=== PATIENT | female | born 1950 | race Caucasian/White ===

== ENCOUNTER 2021-05-16 16:16 | Observation (INO) ==
[2021-05-16 16:56] LABS: Basophils % 0.6 %; Eosinophils # 0.1 K/mcL (0.0-0.6); Hemoglobin 14.5 g/dL (11.5-15.4); Immature Granulocytes % 0.2 % (0-4); Lymphocytes # 1.5 K/mcL (0.6-4.6); Lymphocytes % 24.8 %; Mean Corpuscular Hemoglobin 30.9 pg (28.0-33.3); Mean Corpuscular Volume 93.8 fL (83.0-100.0); Monocytes # 0.6 K/mcL (0.0-1.3); Monocytes % 9.4 %; Platelet Count 266 K/mcL (140-400); Red Blood Count 4.69 M/mcL (3.82-4.97); Red Cell Distribution Width 13.1 % (11.5-14.5); White Blood Count 6.2 K/mcL (4.3-11.1)
[2021-05-16 17:07] LABS: Prothrombin Time 10.6 Seconds (9.4-12.1)
[2021-05-16 17:10] LABS: Activated Partial Thrombo Time 30.5 Seconds (26.0-36.0)
[2021-05-16 17:24] LABS: BUN/Creatinine Ratio 18 (6-26); Blood Urea Nitrogen 17 mg/dL (8-23); Calcium 9.5 mg/dL (8.6-10.3); Carbon Dioxide 26 mEq/L (23-29); Chloride 109 mEq/L (98-107); Glucose 123 mg/dL (70-105); Magnesium 1.8 mg/dL (1.6-2.6); Osmolality,Calculated 297 (280-300); Sodium 142 mEq/L (136-145); eGFR For African Americans > 60 (> 60); eGFR For Non-African Americans 59 (> 60)
[2021-05-16 17:31] LABS: Troponin I 0.05 ng/mL (< 0.04)
[2021-05-16 18:21] LABS: Bilirubin,Urine Negative (Negative); Blood,Urine Negative (Negative); Clarity,Urine Clear (Clear); Color,Urine Light-Yellow (Yellow); Glucose,Urine (UA) Normal (Normal); Ketones,Urine Negative (Negative); Leukocyte Esterase,Urine Negative (Negative); Nitrite,Urine Negative (Negative); Protein,Urine Trace mg/dL (Neg-Trace); Specific Gravity,Urine 1.025 (1.010-1.025); Urobilinogen,Urine Normal (Normal)
[2021-05-16 21:37] LABS: Influenza A PCR Negative (Negative); Influenza B PCR Negative (Negative); Resp. Syncytial Virus PCR Negative (Negative)
[2021-05-16 21:40] LABS: SARS-CoV-2 by PCR (In House) Negative (Negative)
[2021-05-16] MEDS ORDERED: Morphine Sulfate 2 MG/ML SYRINGE IVP PRN (22:19)
[2021-05-16] MEDS ORDERED: Nitroglycerin 0.4 MG TAB.SUBL SL PRN (22:19)
[2021-05-16] MEDS ORDERED: Perflutren Lipid Microsphere 1.3 ML in 0.9 % Sodium Chloride 8.7 ML IVP PRN (22:20)
[2021-05-16] MEDS ORDERED: Ondansetron 4 MG/2 ML VIAL IVP PRN (22:21)
[2021-05-16] MEDS ORDERED: Naloxone 0.4 MG/ML INJ IVP PRN (22:21)
[2021-05-16] MEDS ORDERED: Acetaminophen 325 MG TABLET PO PRN (22:21)
[2021-05-17 02:17] LABS: Hematocrit 38.6 % (35.3-44.9); Mean Corpuscular HGB Conc 33.4 g/dL (31.6-35.5); Mean Corpuscular Hemoglobin 31.1 pg (28.0-33.3); Mean Platelet Volume 9.9 fL (9.4-12.4); Platelet Count 213 K/mcL (140-400); Red Blood Count 4.15 M/mcL (3.82-4.97); Red Cell Distribution Width 13.1 % (11.5-14.5); White Blood Count 6.3 K/mcL (4.3-11.1)
[2021-05-17 02:29] LABS: Hemoglobin 12.9 g/dL (11.5-15.4)
[2021-05-17 02:39] LABS: Iron 40 mcg/dL (50-170)
[2021-05-17 02:40] LABS: BUN/Creatinine Ratio 23 (6-26); Blood Urea Nitrogen 18 mg/dL (8-23); Calcium 8.8 mg/dL (8.6-10.3); Carbon Dioxide 23 mEq/L (23-29); Chloride 109 mEq/L (98-107); Chol/HDL Ratio 3.1 (0-4.9); Cholesterol 127 mg/dL (< 200); Glucose 121 mg/dL (70-105); HDL Cholesterol 41 mg/dL (40-59); LDL Cholesterol,Calculated 64 mg/dL (< 100); Osmolality,Calculated 293 (280-300); Potassium 4.1 mEq/L (3.5-5.1); Sodium 140 mEq/L (136-145); Triglycerides 109 mg/dL (< 150); eGFR For African Americans > 60 (> 60); eGFR For Non-African Americans > 60 (> 60)
[2021-05-17 02:41] LABS: Thyroid Stimulating Hormone 2.621 mcIU/mL (0.340-5.600)
[2021-05-17 02:45] LABS: Ferritin 33 ng/mL (10-120)
[2021-05-17 02:50] LABS: Folate 6.6 ng/mL (3.0-16.0)
[2021-05-17 03:00] LABS: % Iron Saturation 12 % (15-50); Transferrin 235 mg/dL (203-362)
[2021-05-17 06:12] LABS: Estimated Average Glucose 131 mg/dl; Hemoglobin A1C 6.2 %
[2021-05-17] MEDS: Aspirin Enteric Coated 81 MG Tablet PO SCH ×2 (06:47→09:03)
[2021-05-17] MEDS: *HR* Heparin 5,000 UNIT/ML VIAL SQ SCH ×3 (06:47→20:23)
[2021-05-17] MEDS: Cyanocobalamin (B-12) 1,000 MCG TABLET PO SCH (09:01)
[2021-05-17] MEDS: Cholecalciferol (D-3) 1,000 UNIT (25MCG) TABLET PO SCH (09:03)
[2021-05-17] MEDS: lisinopriL 10 MG TABLET PO SCH (09:03)
[2021-05-17] MEDS ORDERED: Regadenoson 0.4 MG/5 ML SYRINGE IVP ONE (11:12)
[2021-05-17] MEDS ORDERED: Heparin 1,000 UNITS/500 mL 500 ML ONE (12:02)
[2021-05-17] MEDS ORDERED: 0.9 % Sodium Chloride 2,000 ML ONE (12:02)
[2021-05-17] MEDS ORDERED: *HR* Heparin 10,000 UNIT/10 ML VIAL ONE (12:02)
[2021-05-17] MEDS ORDERED: Nitroglycerin 1,000 MCG/5 ML VIAL IV ONE (12:03)
[2021-05-17] MEDS ORDERED: ISOVUE-370 200 ML INFUS..BTL ONE (12:03)
[2021-05-17] MEDS ORDERED: *HR* Midazolam HCl 2 MG/2 ML VIAL ONE (12:07)
[2021-05-17] MEDS ORDERED: *HR* FentaNYL (PF) 100 MCG/2 ML VIAL ONE (12:07)
[2021-05-17] MEDS ORDERED: Fluticasone Propionate Nasal 50 MCG/SPRAY BOTTLE NS SCH (21:00)
[2021-05-18 04:53] LABS: BUN/Creatinine Ratio 16 (6-26); Blood Urea Nitrogen 13 mg/dL (8-23); Carbon Dioxide 25 mEq/L (23-29); Chloride 106 mEq/L (98-107); Glucose 113 mg/dL (70-105); Magnesium 1.9 mg/dL (1.6-2.6); Osmolality,Calculated 289 (280-300); Phosphorous 4.1 mg/dL (2.7-4.5); Potassium 3.6 mEq/L (3.5-5.1); Sodium 139 mEq/L (136-145); eGFR For African Americans > 60 (> 60); eGFR For Non-African Americans > 60 (> 60)
[2021-05-18] MEDS: *HR* Heparin 5,000 UNIT/ML VIAL SQ SCH ×2 (06:02→14:08)
[2021-05-18 07:17] VITALS: BP 138/91; PULSE 80; TEMP 98.1; O2SAT 95
[2021-05-18] MEDS: Cyanocobalamin (B-12) 1,000 MCG TABLET PO SCH (08:18)
[2021-05-18] MEDS: Aspirin Enteric Coated 81 MG Tablet PO SCH (08:18)
[2021-05-18] MEDS: lisinopriL 10 MG TABLET PO SCH (08:18)
[2021-05-18] MEDS: Cholecalciferol (D-3) 1,000 UNIT (25MCG) TABLET PO SCH (08:18)
== END 2021-05-18 14:35 | disposition home or self-care (01) ==
LOC: EMEROOARM 16:16 → 3BNU 16:16 → SUATTDRO 22:29 → 3BNU 05-17 00:03
PROVIDERS: ADMIT Internal Medicine; ATTEND Internal Medicine